=== PATIENT | male | born 1990 | race African-American/Black ===

== ENCOUNTER 2023-06-07 13:12 | Emergency (ER) | payer BC, OTHER ==
[2023-06-07 13:18] VITALS: BP 110/60; RESP 18; TEMP 100; BMI 32.3
[2023-06-07 14:36] VITALS: PULSE 98
[2023-06-07] MEDS ORDERED: ACETAMINOPHEN 325 MG TABLET (FP) ONE (14:39)
[2023-06-07] MEDS: ACETAMINOPHEN 325 MG TABLET (FP) PO ONE (14:43)
== END 2023-06-07 14:47 | disposition home or self-care (01) ==
LOC: JERFT 13:12
DX: R50.9 Fever, unspecified (principal); R05.9 Cough, unspecified; R51.9 Headache, unspecified; B34.9 Viral infection, unspecified; J10.1 Influenza due to other identified influenza virus with other respiratory manifestations; Z20.822 Contact with and (suspected) exposure to COVID-19
CPT/HCPCS: 0241U-QW; 71046-TC-FY; 99284-25